=== PATIENT | male | born 1950 | race Caucasian/White ===

== ENCOUNTER 2023-02-19 10:12 | Day surgery (SDC) | payer BC ==
[2023-02-19] MEDS ORDERED: Iopamidol-M 200 41% 10 ML VIAL FS ONE (10:17)
== END 2023-02-19 12:58 | disposition home or self-care (01) ==
LOC: CSHRAD 10:12
PROVIDERS: ATTEND Neurological Surgery
PROC: B02BYZZ Computerized Tomography (CT Scan) of Spinal Cord using Other Contrast (ICD-10-PCS; principal; 2023-02-19)
DX: M47.26 Other spondylosis with radiculopathy, lumbar region (principal); M48.062 Spinal stenosis, lumbar region with neurogenic claudication
CPT/HCPCS: 62304; 72132; Q9966